=== PATIENT | male | born 1965 | race Caucasian/White ===

== ENCOUNTER 2020-08-31 11:24 | Emergency (ER) | payer OTHER ==
[~2020-08-31] VITALS: Ht 182.9 cm; Wt 113.4 kg
[~2020-08-31 11:24] MED LIST: FLEXERIL PO; PRINIVIL10 MG PO; ZOCOR20 MG PO
[2020-08-31 14:33] LABS: URINE BILIRUBIN NEGATIVE (Negative); URINE BLOOD NEGATIVE (Negative); URINE CLARITY CLEAR; URINE COLOR YELLOW; URINE GLUCOSE-RANDOM NEGATIVE (Negative); URINE KETONES NEGATIVE (Negative); URINE LEUKOCYTES-REFLEX NEGATIVE (Negative); URINE NITRITE-REFLEX NEGATIVE (Negative); URINE PROTEIN NEGATIVE (Negative); URINE SPECIFIC GRAVITY 1.015 (1.005-1.030); URINE UROBILINOGEN 0.2 E.U./dl (0.2-1.0)
[2020-08-31 14:49] LABS: ABSOLUTE BASOPHILS 0.2 thou/uL (0.0-0.2); ABSOLUTE EOSINOPHILS 0.2 thou/uL (0.0-0.7); ABSOLUTE LYMPHOCYTES 3.2 thou/uL (0.8-5.3); ABSOLUTE MONOCYTES 0.6 thou/uL (0.0-1.2); BASOPHILS 1.2 %; EOSINOPHILS 1.5 %; HEMATOCRIT 44.5 % (42.0-52.0); HEMOGLOBIN 15.7 gm/dL (14.0-18.0); LYMPHOCYTES 26.6 %; MCH 30.6 pg (26.0-34.0); MCHC 35.3 g/dL (28.0-37.0); MCV 86.5 fL (80.0-100.0); MONOCYTES 4.9 %; MPV 9.5 fl. (7.2-11.1); NUCLEATED RBCS 0 /100WBC; PLATELET COUNT* 252 thou/uL (150-400); POLYS 65.8 %; RBC 5.14 mil/uL (4.50-6.00); RDW-CV 13.4 % (10.5-14.5); WBC 12.2 thou/uL (4.0-11.0)
[2020-08-31 14:59] LABS: CREATININE 0.8 mg/dL (0.6-1.3); POTASSIUM 3.9 mmol/L (3.5-5.1)
[2020-08-31 15:09] LABS: ALBUMIN 4.2 g/dL (3.4-5.0); TOTAL BILIRUBIN 0.7 mg/dL (<0.1-1.0); TOTAL PROTEIN 8.4 g/dL (6.4-8.2)
--- NOTE | 2020-08-31 15:42 | EKG ---
[place] [address] ELECTROCARDIOGRAM REPORT Name: GABBIE HANKS Room: [facility]#: [id number] Admission: 08/31/20 Attend Phys: Discharge: Date of : 61 Date of Service: 08/31/20 1134 Report #: [id number] THIS REPORT FOR: //name// [facility] ED Test Date: 2020-08-31 Test Time: 11:34:10 Pat Name: GABBIE HANKS Department: Room: Gender: Frog Farmer: [facility] [place] 1965 Requested By: Cely Page Order Number: [id number] MD: Noé Medina Measurements Intervals [place] Rate: 103 P: 54 MA: 145 QRS: 52 QRSD: 113 T: 33 QT: 348 QTc: 456 Interpretive Statements Sinus tachycardia Borderline intraventricular conduction delay Minimal ST depression, inferior leads Baseline wander in lead(s) II,III,aVR,aVL,aVF,V2,V3,V6 Compared to ECG 01/24/2017 18:05:05 Heart rate has increased Minor inferior ST (T wave) deviation now present Electronically Signed On 08-31-2020 15:42:42 CDT by Noé Medina [email or web address] <ELECTRONICALLY SIGNED> By: Noé Medina MD, LOCATED WITHIN [facility] 08/31/20 1542 1134 1134 Noé Medina MD, LOCATED [facility] /EPI
[2020-08-31] MEDS ORDERED: ZOFRAN ODT4 MG PO (16:49)
[2020-08-31] MEDS ORDERED: BENTYL 10 MG CA10 M1 PO (16:49)
[2020-08-31 17:53] VITALS: BP 133/68
== END 2020-08-31 17:54 | disposition home or self-care (01) ==
LOC: M.ERS 11:24
PROVIDERS: Nurse Practitioner Family
DX: K76.0 Fatty (change of) liver, not elsewhere classified (principal); R07.89 Other chest pain; I10 Essential (primary) hypertension; E78.00 Pure hypercholesterolemia, unspecified